=== PATIENT | female | born 1980 | race American Indian/Alaskan Native ===

== ENCOUNTER 2020-02-17 15:45 | Emergency (ER) | payer SELFPAY ==
[2020-02-17] MEDS ORDERED: SODIUM BICARB 8.4% 50 MEQ/50 ML SYRINGE IV ONE (15:49)
[2020-02-17] MEDS ORDERED: NALOXONE 2 MG/2 ML INJ ONE (15:49)
[2020-02-17] MEDS ORDERED: EPINEPHrine 1 MG/10 ML SYRINGE ONE (15:49)
--- NOTE | 2020-02-17 16:20 | Emergency Department Report ---
HPI - General Chief Complaint: Cardiac Arrest/CPR Time Seen by Provider: 02/17/20 16:16 - HPI HPI: Room 2 The patient is a 29-year-old female present with a chief complaint of cardiac arrest. Per EMS they received a call for cardiac arrest. Upon their arrival no one at the [facility] knew anything about the patient. Per EMS the patient had an agonal rhythm that evolved into asystole. Epi x2 was administered. EMS was unable to intubate the patient. Upon arrival the patient was intubated by myself using the glidescope and ACLS protocols were continued. There was no return of spontaneous circulation ED Past Medical Hx - Family History Family history: no significant - Social History Smoking Status: Unknown if ever smoked ED Review of Systems ROS: Stated complaint: CARDIAC ARREST Other details as noted in HPI Comment: Unobtainable due to pts medical conditions Physical Exam - Physical Exam Physical Exam: GENERAL: The patient is well-nourished obese female lying on stretcher receiving chest compressions from EMS. [] HEENT: Normocephalic. Atraumatic. NECK: Trachea midline CHEST/LUNGS: No spontaneous respirations. Breath sounds equal bilaterally with bagging after intubation by myself HEART/CARDIOVASCULAR: No heart sounds. Asystole on monitor ABDOMEN: Abdomen is soft, SKIN: There is no rash. There is no edema. There is no diaphoresis. NEURO: GCS 3 MUSCULOSKELETAL: There is no evidence of acute injury. - Intubation Time Out Performed: No Sedative: none Laryngoscope: fiberoptic video scope Size: 3 Assist Device Used: fiberoptic device ET Tube Size: 7.5 Tube Secured Depth (cm): 21 Tube Secured Location: lips Tube Placement Confirmation: visualized tube passing t, equal breath sounds bilat, confirmation by capnometr Patient Tolerated Procedure: no complications Intubation Complications: none ED Medical Decision Making - Differential Diagnosis Cardiac arrest Critical care attestation.: If time is entered above; I have spent that time in minutes in the direct care of this critically ill patient, excluding procedure time. ED Disposition Clinical Impression: Cardiac arrest Disposition: DC-20 Is pt being admited?: No Does the pt Need Aspirin: No Condition: Poor Time of Disposition: 16:21 (Patient )
== END 2020-02-18 01:47 ==
LOC: ED 15:45
DX: I46.9 Cardiac arrest, cause unspecified (principal)
CPT/HCPCS: 31500; 93005; 99285; J0171; J2310